=== PATIENT | male | born 1970 | race Caucasian/White ===

== ENCOUNTER 2022-03-11 16:50 | Emergency (ER) | payer OTHER, SELFPAY ==
[2022-03-11 17:05] VITALS: BP 167/96; PULSE 85; RESP 19; TEMP 36.7; O2SAT 97; BMI 38.7
--- NOTE | 2022-03-11 17:14 | EXP.UTC ---
Discharge Plan Disposition Patient Disposition: Home, Self-Care Condition: Good Prescriptions Prescriptions: New cyclobenzaprine 10 mg Tablet 10 mg PO BID PRN (Reason: Muscle Spasm) Qty: 20 0RF methylprednisolone 4 mg Tablets,Dose Pack 4 mg PO DIRECTED Qty: 21 0RF No Action buspirone 5 mg Tablet 5 mg PO BID lisinopril 10 mg tablet 10 mg PO DAILY Label Comments: TAKE 1 TABLET BY MOUTH EVERY DAY Referrals Follow up/Referrals: Provider,Referral, MD [Primary Care Provider] - See instructions Activity Restrictions/Add. Instructions Additional Instructions/Restrictions: Go home and rest. It would be best if you rested tomorrow too. No heavy lifting. No twisting. Take the oral medications as directed. The muscle relaxer (cyclobenzaprine--Flexeril) will make you drowsy, so don't drive or operate heavy machinery after taking it. Don't start the oral steroids (medrol dose pack) until tomorrow, since you had the shots in here today. Follow up with your regular doctor. GO TO THE ER FOR ANY WORSENING SYMPTOMS OR CONCERN, ESPECIALLY BOWEL OR BLADDER ISSUES, SADDLE AREA NUMBNESS, FEVER, ETC Clinical Impressions Clinical Impression: Radiculopathy, Low back pain Stand Alone Forms Stand Alone Forms: Work/School Release Instructions Patient Instructions: DI for Low Back Pain, DI for Sciatica Discharge ED Provider: Isaias Warren [facility] [place] General Stated complaint: lower back pain, bilateral leg pain, no accident Mode of Arrival: Ambulatory Source of Information: Patient Limitations: No Limitations Time Seen by Provider: 03/11/22 17:09 Description of Symptoms (Recalled from Triage Doc. by RN): PATIENT C/O LOWER BACK PAIN THAT RADIATES TO INNER THIGHS, WORSE ON LEFT SIDE. HE STATES ITS BEEN GOING ON FOR A WHILE BUT IS WORSE TODAY. NO KNOWN INJURY HEENT Symptoms (Recalled from RN notes): No Resp Symptoms (Recalled from RN notes): No Skin Symptoms (Recalled from RN notes): No MS Symptoms (Recalled from RN notes): Yes Functional Status (Recalled from RN notes): WNL History of Present Illness Provider Complaint: He states that he has had low back pain for the past 2 days. He denies any fever, chills or malaise. He thinks he has pulled a muscle. Related Data Home Medications Medication Instructions Recorded Confirmed buspirone 5 mg tablet 5 mg PO BID Anxiety 03/11/22 03/11/22 lisinopril 10 mg tablet 10 mg PO DAILY Hypertension 03/11/22 03/11/22 Previous Rx's Medication Instructions Recorded cyclobenzaprine 10 mg tablet 10 mg PO BID PRN Muscle Spasm #20 03/11/22 tabs methylprednisolone 4 mg tablets in 4 mg PO DIRECTED #21 tabs 03/11/22 a dose pack Allergies Allergy/AdvReac Type Severity Reaction Status Date / Time No Known Allergies Allergy Verified 03/11/22 17:14 Worker's Comp Is this a Worker's Comp case?: No PFSH PFSH Medical History Anxiety Hypertension Kidney stone Surgical History History of appendectomy History of hernia repair History of tonsillectomy Social History Smoking Status: Unknown if ever smoked alcohol intake: current current occupational status: employed Travel in the last 8 weeks: None ROS Obtained: Yes All systems reviewed & no additional complaints except as documented Constitutional Constitutional: Denies chills and Denies fever(s) Genitourinary Male Genitourinary: Denies difficulty urinating Musculoskeletal Musculoskeletal: Reports as per HPI and Reports back pain Integumentary/Breasts Skin/Breast: Denies redness, Denies rash and Denies wounds Neurologic Neurologic: Denies paresthesias Physical Exam General General appearance: alert and in no apparent distress Head Head exam: atraumatic, normocephalic and normal inspection Eye Eye exam: Present n
[2022-03-11 18:03] VITALS: BP 167/96; PULSE 85; RESP 19; TEMP 36.7; O2SAT 97
== END 2022-03-11 18:08 | disposition home or self-care (01) ==
PROVIDERS: Emergency Provider Nurse Practitioner Family
DX: M54.16 Radiculopathy, lumbar region (principal); M62.838 Other muscle spasm; I10 Essential (primary) hypertension; F41.9 Anxiety disorder, unspecified; Z79.52 Long term (current) use of systemic steroids; Z79.899 Other long term (current) drug therapy; Z87.442 Personal history of urinary calculi
CPT/HCPCS: 96372; 99213; G0463